=== PATIENT | male | born 1940 | race Caucasian/White ===

== ENCOUNTER → 2016-10-20 | Outpatient (CLI) | payer OTHER ==
[~2016-10-20] VITALS: Ht 182.9 cm; Wt 106.1 kg
[~2016-10-20] MED LIST: ASPIRIN EC81 M1 PO; CARNITINE250 MG PO; CHLORDIAZEPOXID10 MG PO; COENZYME Q-1050 MG PO; CURCUMIN1 GM; DHA ALGAL-900300 MG PO; FISH OIL 1,0001 EAC9 PO; FLEXERIL PO; IBUPROFEN 400400 M2 PO; LEVOTHYROXINE 0.1 MG PO; NABUMETONE 750750 M1 PO; NORVASC5 MG PO; PROBIOTIC1 EAC1 PO; PROTONIX40 M1 PO; SORINE 80 MG TA80 MG PO; TRAMADOL 50 MG50 MG PO; TUMERIC PO; VITAMIN E400 UNIT PO
--- NOTE | ~2016-10-20 | HPC ---
[facility] [address] [place] [address] PAIN MANAGEMENT CONSULTATION Name: CECI AYALA Room #: REG RITA Tyler#: [id number] Admission: 10/20/16 Attend Phys: Joselito Carr DO Discharge: Date of : 40 Report #: [id number] THIS REPORT FOR: //name// CC: Chung Carr HISTORY: The patient is a pleasant 76-year-old gentleman. He is being treated for symptomatic lumbar radiculopathy secondary to spinal stenosis. Very pleasant jim with fairly significant central stenosis at L3-L4. Canal is narrowed to about 5.5 mm at this level. He has severe left and right neural foraminal stenosis. He has significant symptoms of neurogenic claudication with functional activity. Last injection afforded good, yet transient relief. The patient noted at least 50% relief for about 2 months, but pain has begun to recur without antecedent trauma and overuse. He notes pain is fairly significantly in the low back, radiates into the bilateral legs, anterior thigh and into the groin. It appears to be bilateral L3 radicular distribution. Long discussion with the patient today about therapeutic options. We elected to repeat an injection under fluoroscopy today, but strongly recommended he follow up with Dr. Manny Padilla for consideration for surgical intervention. Hopefully, a minimally invasive laminectomy at L3-L4 would significantly ameliorate the symptoms. If not, we can continue injections to manage symptoms, but again at 76, the patient is fairly robust. He has enjoyed reasonably good health. He does have coronary artery disease, but status post endovascular stent a number of years ago. He has been remarkably stable, physically active, continues to work around the farm. He would like to continue to be as functional as possible. To this end, we will repeat the injection and again have him follow up with Dr. Padilla. ASSESSMENT: Symptomatic lumbar radiculopathy secondary to spinal stenosis. PROCEDURE: Lumbar epidural injection under fluoroscopy. PROCEDURE NOTE: After both written and informed consent to include risk of spinal cord damage, increased pain, weakness and dural puncture, the patient was taken to the fluoroscopy suite, placed in the prone position. After sterile prep and drape, a skin wheal with lidocaine was raised. A 22-gauge epidural Tuohy needle was inserted in the midline at L4-L5 with good loss to resistance. Negative aspiration for cerebrospinal fluid or blood was noted. Then 1 mL of Omnipaque under biplanar fluoroscopy showed good spread within the epidural space. This was followed with 80 mg of triamcinolone plus 1 mL of 1.5% preservative-free Xylocaine, 0.5 mL Xylocaine was then injected to flush the [address] [address] PAIN MANAGEMENT CONSULTATION Name: CECI AYALA Room #: REG RITA Tyler#: [id number] Admission: 10/20/16 Attend Phys: Joselito Carr DO Discharge: Date of : 40 Report #: [id number] needle; it was removed. The patient was monitored for an appropriate period of time and discharged in good and stable condition. <ELECTRONICALLY SIGNED> By: Joselito Carr DO 10/21/16 0655 [id number] 2330 Joselito Carr DO /nt
[2016-10-20 14:14] VITALS: BP 134/74
== END | disposition home or self-care (01) ==
LOC: PAIN 07:22
DX: M54.16 Radiculopathy, lumbar region (principal); M48.06 Spinal stenosis, lumbar region

== ENCOUNTER → 2019-02-26 | Outpatient (CLI) | payer OTHER ==
[~2019-02-26] VITALS: Ht 180.3 cm; Wt 95.3 kg
[~2019-02-26] MED LIST changes: +COENZYME Q-10200 MG PO; +MULTAQ 400 MG400 MG PO; +PRADAXA75 MG PO; +RED YEAST RICE600 MG PO
[2019-02-26 07:43] VITALS: BP 118/70
[2019-02-26 08:03] LABS: HEMOGLOBIN 12.6 gm/dL (14.0-18.0); MCH 31.2 pg (26.0-34.0); MCHC 34.1 g/dL (28.0-37.0); MCV 91.6 fL (80.0-100.0); RBC 4.04 mil/uL (4.50-6.00); RDW 13.7 % (10.5-14.5); WBC 4.4 thou/uL (4.0-11.0)
[2019-02-26 08:13] LABS: CALCIUM 8.7 mg/dL (8.5-10.1); CREATININE 1.6 mg/dL (0.7-1.3); POTASSIUM 3.8 mmol/L (3.5-5.1)
[2019-02-26 08:19] LABS: ALBUMIN 3.5 g/dL (3.4-5.0); TOTAL BILIRUBIN 0.9 mg/dL (<0.1-1.0)
[2019-02-26 08:21] LABS: APTT 60.6 Seconds (24.5-32.8); INR 1.6; PROTIME 16.4 Seconds (9.3-11.4)
--- NOTE | 2019-03-14 15:48 | P ---
[facility] [place] [address] [address] [place] [address] PROCEDURE REPORT Name: CECI AYALA [id number] Admission: 02/26/19 Attend Phys: Darrell Almazan MD Discharge: Date of : 40 Report #: [id number] THIS REPORT FOR: //name// CC: Chung Almazan PREOPERATIVE DIAGNOSIS: Atrial fibrillation. POSTOPERATIVE DIAGNOSIS: Atrial fibrillation. DESCRIPTION OF PROCEDURE: The patient underwent informed consent. He was sedated by the Anesthesiology service. Once sedated, he underwent a 200 joule synchronized cardioversion with religion of sinus rhythm. His pacemaker was checked post-cardioversion and it revealed sinus rhythm and normal device function. CONCLUSIONS: Successful DC cardioversion with religion of sinus rhythm. <ELECTRONICALLY SIGNED> By: Darrell Almazan MD 03/14/19 1548 [id number] [id number] Darrell Almazan MD /nt
== END | disposition home or self-care (01) ==
LOC: CATH 06:54
PROVIDERS: Internal Medicine Cardiovascular Disease
DX: I48.91 Unspecified atrial fibrillation (principal); I10 Essential (primary) hypertension; I25.5 Ischemic cardiomyopathy; I25.2 Old myocardial infarction; E78.5 Hyperlipidemia, unspecified; K21.9 Gastro-esophageal reflux disease without esophagitis; Z86.73 Personal history of transient ischemic attack (TIA), and cerebral infarction without residual deficits; Z87.891 Personal history of nicotine dependence; Z79.01 Long term (current) use of anticoagulants; Z98.0 Intestinal bypass and anastomosis status; Z85.038 Personal history of other malignant neoplasm of large intestine; Z98.890 Other specified postprocedural states; Z79.899 Other long term (current) drug therapy
CPT/HCPCS: 62110; 62900

== ENCOUNTER → 2019-09-27 | Outpatient (CLI) | payer OTHER ==
[~2019-09-27] MED LIST changes: +LEVOTHYROXINE112 MCG PO; +OMEGA Q PLUS PO
== END ==
LOC: SJCVC 11:11 → SJCVCIMAG 11:11
DX: Z01.818 Encounter for other preprocedural examination (principal); I08.8 Other rheumatic multiple valve diseases; I11.9 Hypertensive heart disease without heart failure; I27.20 Pulmonary hypertension, unspecified; R94.31 Abnormal electrocardiogram [ECG] [EKG]; I25.10 Atherosclerotic heart disease of native coronary artery without angina pectoris; E78.00 Pure hypercholesterolemia, unspecified; I25.5 Ischemic cardiomyopathy; I71.9 Aortic aneurysm of unspecified site, without rupture; I48.0 Paroxysmal atrial fibrillation; D68.59 Other primary thrombophilia; M19.90 Unspecified osteoarthritis, unspecified site; E03.9 Hypothyroidism, unspecified; Z95.5 Presence of coronary angioplasty implant and graft; Z79.84 Long term (current) use of oral hypoglycemic drugs; Z79.899 Other long term (current) drug therapy; Z85.828 Personal history of other malignant neoplasm of skin; Z87.891 Personal history of nicotine dependence

== ENCOUNTER → 2019-10-09 | Day surgery (SDC) | payer OTHER ==
[~2019-10-09] VITALS: Ht 180.3 cm; Wt 92.5 kg
--- NOTE | ~2019-10-09 | O ---
[facility] [place] [address] [address] [place] [address] OPERATIVE REPORT Name: CECI AYALA Room #: REG [facility] M.Elbert.#: [id number] Admission: 10/09/19 Attend Phys: Chinedu Suarez Discharge: Date of : 40 Report #: [id number] THIS REPORT FOR: cc: Chung Castaneda James L. DO VanDenBerghe,Chinedu Eid MD ~ CC: Chinedu Castaneda DATE OF SERVICE: 10/09/2019 PREOPERATIVE DIAGNOSES: Left shoulder pain, large rotator cuff tear. POSTOPERATIVE DIAGNOSES: Left shoulder pain, large rotator cuff tear, long head of biceps tendon tear, complex labral tear, glenohumeral joint chondromalacia, impingement syndrome, subacromial bursitis. PROCEDURE PERFORMED: Left shoulder arthroscopy, rotator cuff repair, subacromial decompression, arthroscopic biceps tenodesis, extensive debridement. SURGEON: Chinedu Alfonso MD [facility] PROGRAM COORDINATOR: Yani Brandon PA-C. ANESTHESIA: General with preoperative ultrasound-guided interscalene block. FLUIDS: 1100 mL crystalloid. ESTIMATED BLOOD LOSS: 5 mL. DESCRIPTION OF PROCEDURE: After proper identification of the patient and operative site in preoperative holding area, the operative site was signed by myself. Prophylactic antibiotics given. The patient elected to receive an ultrasound-guided block after reviewing the risks, benefits, alternatives and potential complications with anesthesia. After a satisfactory block, the patient was brought back to the operative suite after induction of satisfactory general anesthesia per LMA. Left shoulder was examined. It was stable throughout a full arc of motion comparable to the preoperative assessment. The patient was carefully positioned in the right lateral decubitus position. Joshi bag and axillary roll were utilized to support the torso. The left shoulder was sterilely prepped and draped in the usual manner and placed in 10 pounds of balanced arthroscopic suspension. Posterior portal was established, joint was inflated with an arthroscopic pump set at 40 mmHg. An anterior superior portal was then created using a spinal needle for localization. Examination of the glenohumeral joint revealed some mild intraarticular synovitis, complex labral fraying and tearing were noted of the anterior, superior and posterior superior [address] [address] OPERATIVE REPORT Name: CECI AYALA Room #: REG [facility] M.R.#: [id number] Admission: 10/09/19 Attend Phys: Chinedu Suarez Discharge: Date of : 40 Report #: [id number] quadrants. Long head of the biceps tendon tear with an extensive long head of the biceps tendon tear with underlying tendinopathy was also present. The upper border of the subscapularis appeared intact. Tendon grasping stitch was placed on the biceps and it was released off the superior labrum, which was then carefully debrided. The more inferior labral tissues and chondral surfaces of the humeral head and glenoid revealed some mild degenerative change, no full thickness chondral lesions were noted. There was evidence of a full thickness retracted rotator cuff tear involving the supraspinatus extending back to the infraspinatus. The arthroscope was introduced in the subacromial space, there was extensive thickening to the bursa and a bursectomy was performed with a motorized bur. There was fraying on the undersurface of the coracoacromial arch and prominence to the acromion was removed with a motorized bur after the CA ligament was reflected off the anterolateral edge of the acromion. At this point, the greater tuberosity was prepared with a sharp ring curette and motorized shaver. The patient had a rotator cuff tear that primarily retracted posteriorly and this tear was able to be brought anteriorly. There was no ability to close the most anterior aspect of the supraspinatus as he had some tissue loss as this extended into the rotator interval, so this was not a watertight closure. So if he had an imaging study in the future, it would show or may be interpreted as a recurrent rotator cuff tear in this area where there was still a defect from the tissue and inability to close this in a watertight manner. Through a separate portal off the lateral border of the acromion, a triple-loaded Arthrex 4.75 mm SwiveLock anchor was inserted and had #2 FiberWires as well as a FiberTape. These sutures were passed in a horizontal mattress fashion with a bird beak from a posterior portal. Sutures were then tied and then the tapes were also passed in a similar manner and a separate anchor more anteriorly based was then placed to help reduce the remaining supraspinatus onto the footprint and then the core stitch in this anchor was also used in a simple manner for an additional repair of the anterior leading edge of this repair. The repair construct was stable to probing, nicely reapproximated the tissues of sufficient integrity for repair. Overall, the tendon quality was fair to poor. Lateral portion of the bicipital groove was opened. Extensive partial thickness tearing and tendinosis of the tendon was noted, but a whipstitch was able to be applied with the scorpion and this was secured with an Arthrex proximal biceps tenodesis button in a predrilled hole in the bicipital groove. This button was delivered. Sutures and tendon were tensioned and then this was tied with alternating half hitches. The remaining free end of the stump was carefully debrided. At this point, subacromial space thoroughly irrigated with normal saline. Portals closed with simple nylon stitch. Sterile dressing was applied. The patient will be immobilized in a sling and abduction pillow for 8 weeks postoperatively. By: [id number] Chinedu Alfonso MD /nt
[2019-10-09 15:57] VITALS: BP 147/89
[2019-10-09 17:06] VITALS: BP 147/89
== END | disposition home or self-care (01) ==
LOC: OR 11:38 → EDSTATUS 19:14
DX: M25.512 Pain in left shoulder (principal); M75.102 Unspecified rotator cuff tear or rupture of left shoulder, not specified as traumatic; S46.112A Strain of muscle, fascia and tendon of long head of biceps, left arm, initial encounter; S43.402A Unspecified sprain of left shoulder joint, initial encounter; M94.212 Chondromalacia, left shoulder; M75.42 Impingement syndrome of left shoulder; M75.52 Bursitis of left shoulder; I10 Essential (primary) hypertension; E78.5 Hyperlipidemia, unspecified; I25.10 Atherosclerotic heart disease of native coronary artery without angina pectoris; I25.5 Ischemic cardiomyopathy; K21.9 Gastro-esophageal reflux disease without esophagitis; E03.9 Hypothyroidism, unspecified; Z98.890 Other specified postprocedural states; Z79.899 Other long term (current) drug therapy; Z85.038 Personal history of other malignant neoplasm of large intestine; Z90.49 Acquired absence of other specified parts of digestive tract; X58.XXXA Exposure to other specified factors, initial encounter; Y93.89 Activity, other specified; Y92.89 Other specified places as the place of occurrence of the external cause; Y99.8 Other external cause status; I48.0 Paroxysmal atrial fibrillation; Z85.828 Personal history of other malignant neoplasm of skin
CPT/HCPCS: 50010; 50101; 50172; 50386; 50417; 50935; 50950; 51038; 51320; 51445; 51847; 52001; 52313; 53610; 54170; 56527; 56530; 57103; 62110; 62900; 70005

== ENCOUNTER → 2020-04-08 | Outpatient (CLI) | payer OTHER | LOC: SJCVC 10:59 | PROVIDERS: ATTEND Internal Medicine Cardiovascular Disease | DX: Z45.018 Encounter for adjustment and management of other part of cardiac pacemaker (principal); I25.10 Atherosclerotic heart disease of native coronary artery without angina pectoris; I71.2 Thoracic aortic aneurysm, without rupture; D68.59 Other primary thrombophilia; S06.5X0S Traumatic subdural hemorrhage without loss of consciousness, sequela; I25.5 Ischemic cardiomyopathy; I10 Essential (primary) hypertension; I48.21 Permanent atrial fibrillation; E78.00 Pure hypercholesterolemia, unspecified; Z79.899 Other long term (current) drug therapy; Z87.891 Personal history of nicotine dependence; X58.XXXS Exposure to other specified factors, sequela ==

== ENCOUNTER → 2020-10-14 | Outpatient (CLI) | payer OTHER | LOC: SJCVCIMAG 08:44 | PROVIDERS: ATTEND Internal Medicine Cardiovascular Disease | DX: I44.7 Left bundle-branch block, unspecified (principal); I25.10 Atherosclerotic heart disease of native coronary artery without angina pectoris; I71.2 Thoracic aortic aneurysm, without rupture; I10 Essential (primary) hypertension; E78.00 Pure hypercholesterolemia, unspecified; I48.91 Unspecified atrial fibrillation; E03.9 Hypothyroidism, unspecified; Z95.0 Presence of cardiac pacemaker; Z79.899 Other long term (current) drug therapy; Z86.16 Personal history of COVID-19; Z87.891 Personal history of nicotine dependence; Z82.49 Family history of ischemic heart disease and other diseases of the circulatory system ==

== ENCOUNTER → 2021-03-24 | Outpatient (CLI) | payer OTHER | LOC: CAT 14:19 | PROVIDERS: ATTEND Internal Medicine Cardiovascular Disease | DX: Z13.6 Encounter for screening for cardiovascular disorders (principal); E78.00 Pure hypercholesterolemia, unspecified; I25.10 Atherosclerotic heart disease of native coronary artery without angina pectoris ==

== ENCOUNTER → 2021-10-12 | Outpatient (CLI) | payer OTHER | LOC: SJCVCIMAG 12:31 | PROVIDERS: ATTEND Internal Medicine Cardiovascular Disease | DX: I08.8 Other rheumatic multiple valve diseases (principal); I25.10 Atherosclerotic heart disease of native coronary artery without angina pectoris; I25.5 Ischemic cardiomyopathy; I10 Essential (primary) hypertension; D68.59 Other primary thrombophilia; I48.91 Unspecified atrial fibrillation; I71.2 Thoracic aortic aneurysm, without rupture; E78.00 Pure hypercholesterolemia, unspecified; M19.90 Unspecified osteoarthritis, unspecified site; E03.9 Hypothyroidism, unspecified; C80.1 Malignant (primary) neoplasm, unspecified; C44.90 Unspecified malignant neoplasm of skin, unspecified; Z79.899 Other long term (current) drug therapy; Z98.890 Other specified postprocedural states ==